=== PATIENT | female | born 1990 | race African-American/Black ===

== ENCOUNTER 2021-05-25 23:38 | Emergency (ER) | payer OTHER ==
[~2021-05-25] VITALS: Ht 167.6 cm; Wt 64.0 kg
[2021-05-25 23:43] VITALS: BP 130/74
[2021-05-26] MEDS ORDERED: IBUPROFEN 400MG TABLET PO SCH (00:30)
[2021-05-26] MEDS ORDERED: IBUP-2028 MT (01:53)
== END 2021-05-26 02:33 | disposition home or self-care (01) ==
LOC: ER 23:38
DX: M25.552 Pain in left hip (principal); M25.551 Pain in right hip; M25.572 Pain in left ankle and joints of left foot; M25.571 Pain in right ankle and joints of right foot; Z86.73 Personal history of transient ischemic attack (TIA), and cerebral infarction without residual deficits; V43.62XA Car passenger injured in collision with other type car in traffic accident, initial encounter; Y93.89 Activity, other specified; Y92.488 Other paved roadways as the place of occurrence of the external cause
CPT/HCPCS: 73522; 73610; 81025; 99284